=== PATIENT | male | born 1985 | race Caucasian/White ===

== ENCOUNTER 2016-07-29 05:51 | Emergency (ER) | payer SELFPAY ==
[2016-07-29] MEDS ORDERED: HYDR-971 PO (22:35)
== END 2016-07-29 06:19 | disposition home or self-care (01) ==
LOC: ER 05:51
DX: K08.89 Other specified disorders of teeth and supporting structures (principal)
CPT/HCPCS: 99283

== ENCOUNTER 2016-07-29 22:11 | Emergency (ER) | payer SELFPAY ==
[~2016-07-29] VITALS: Ht 180.3 cm; Wt 95.3 kg
--- NOTE | 2016-07-29 22:26 | PHYS DOC ---
Adult General Chief Complaint Chief Complaint: PAIN CONTROL HPI HPI Patient is a 30 year old male who presents with dental pain. He states he's been having this for last 2 days. He was seen earlier today and received a prescription for morphine however the pharmacy is not a 24-hour pharmacy that he dropped a prescription off at he couldn't get it filled. He was able to get his penicillin filled at another pharmacy. He denies any fevers chills nausea vomiting, trismus, shortness of breath or other concerns this time. He has a list of dentists and is trying to get appointment with him tomorrow. He states his bottom left jaw is bothering him. Review of Systems Review of Systems Constitutional: Denies fever or chills [] Eyes: Denies change in visual acuity, redness, or eye pain [] HENT: Denies nasal congestion or sore throat [] Respiratory: Denies cough or shortness of breath [] Cardiovascular: No additional information not addressed in HPI [] GI: Denies abdominal pain, nausea, vomiting, bloody stools or diarrhea [] : Denies dysuria or hematuria [] Musculoskeletal: Denies back pain or joint pain [] Integument: Denies rash or skin lesions [] Neurologic: Denies headache, focal weakness or sensory changes [] Endocrine: Denies polyuria or polydipsia [] Allergies Allergies Allergies Coded Allergies Type Severity Reaction Last Updated Verified No Known Drug Allergies 07/29/16 No Physical Exam Physical Exam Constitutional: Well developed, well nourished, no acute distress, non-toxic appearance. [] HENT: Normocephalic, atraumatic, bilateral external ears normal, oropharynx moist, no oral exudates, nose normal. Numerous dental caries, no trismus, no Jamison angina, no apical abscess appreciated. Eyes: PERRLA, EOMI, conjunctiva normal, no discharge. [] Neck: Normal range of motion, no tenderness, supple, no stridor. [] Cardiovascular:Heart rate regular rhythm, no murmur [] Lungs & Thorax: Bilateral breath sounds clear to auscultation [] Abdomen: Bowel sounds normal, soft, no tenderness, no masses, no pulsatile masses. [] Skin: Warm, dry, no erythema, no rash. [] Back: No tenderness, no CVA tenderness. [] Extremities: No tenderness, no cyanosis, no clubbing, ROM intact, no edema. [] Neurologic: Alert and oriented X 3, normal motor function, normal sensory function, no focal deficits noted. [] Psychologic: Affect normal, judgement normal, mood normal. [] Current Patient Data Vital Signs Vital Signs Date Time Temp Pulse Resp B/P (MAP) Pulse Ox O2 Delivery O2 Flow Rate FiO2 07/29/16 22:27 97.8 94 20 100 Room Air 97.8 EKG EKG [] Radiology/Procedures Radiology/Procedures [] Impressions: Dental pain Course & Med Decision Making Course & Med Decision Making Pertinent Labs and Imaging studies reviewed. (See chart for details) Patient was given 2 Sinclair is here and a prescription for 6 more tablets that he can use overnight until he gets his pain meds filled in the morning. Return precautions given for fevers chills nausea vomiting, trismus, shortness of breath, fevers or other concerns. Patient is agreeable plan to follow up with dentist in the next few days. Dragon Disclaimer Dragon Disclaimer This electronic medical record was generated, in whole or in part, using a voice recognition dictation system. Departure Departure Impression: Primary Impression: Pain, dental Disposition: HOME, SELF-CARE Condition: STABLE Referrals: NO PCP (PCP) Patient Instructions: Dental Pain Additional Instructions: Your being discharged with 4 tablets of Sinclair. You will need to continue taking her antibiotics as previously instructed. He should have your other pain meds filled tomorrow. You'll need to follow-up with a dentist within the next 1-2 days. Return ER for worsening pain, fevers, trouble swallowing, troubles breathing, or other concerns. Scripts Hydrocodone/Apap 5-325 (NORCO 5-325 TABLET) 1 Each Tablet 1-2 TAB PO Q6HRS Y for PAIN, #4 TAB 0 Refills Prov: SUE BUSH MD 07/29/16 SUE BUSH MD July 29, 2016 22:26
[2016-07-29 22:27] VITALS: BP 154/91
[2016-07-29] MEDS ORDERED: HYDR-971 PO (22:35)
[2016-07-29] MEDS ORDERED: HYDROcodone/APAP 5/325MG 1 TAB TABLET PO ONE (22:45)
== END 2016-07-29 22:44 | disposition home or self-care (01) ==
LOC: ER 22:11
DX: K02.9 Dental caries, unspecified (principal)
CPT/HCPCS: 99283